=== PATIENT | female | born 1945 | race Caucasian/White ===

== ENCOUNTER 2022-10-11 05:13 | Inpatient (IN) | payer OTHER ==
[~2022-10-11] VITALS: Ht 175.3 cm; Wt 102.0 kg
[2022-10-11 06:19] LABS: Basophils # (auto) 0 10 ^3/uL (0-0.2); Basophils % (auto) 0.2 % (0.0-2.0); Eosinophils # (auto) 0 10 ^3/uL (0-0.8); Eosinophils % (auto) 0.5 % (0.0-7.0); Hematocrit 37.5 % (36.0-46.0); Hemoglobin 12.1 g/dL (12.2-16.2); Lymphocytes # (auto) 1.2 10 ^3/uL (0.4-5.4); Lymphocytes % (auto) 14.1 % (10.0-50.0); Mean Corpuscular Hgb Conc. 32.4 g/dL (32.0-36.0); Mean Corpuscular Volume 89.6 fL (80.0-100.0); Monocytes # (auto) 0.8 10 ^3/uL (0-1.3); Monocytes % (auto) 8.8 % (0.0-12.0); Neutrophils # (auto) 6.7 10 ^3/uL (1.6-8.6); Neutrophils % (auto) 76.4 % (37.0-80.0); Nucleated Red Blood Cells % 0.1 %; Red Blood Cells 4.18 10^6/uL (4.0-5.20); Red Cell Distribution Width 13.7 % (11.8-14.3); White Blood Cell 8.7 10^3/uL (4.4-10.8)
[2022-10-11 07:08] LABS: Albumin 3.3 g/dL (3.4-5.0); Calcium 9.1 mg/dL (8.5-10.1); Potassium 3.9 mmol/L (3.5-5.1)
[2022-10-11 07:13] LABS: BUN/Creatinine Ratio 17.6 (10.0-20.0); Bilirubin, Total 0.4 mg/dL (0.2-1.0); Total Protein 6.2 g/dL (6.4-8.2)
[2022-10-11] MEDS ORDERED: InsuLIN REG 1unit/0.01ml Soln (100units/ml) IV ONE (07:30)
[2022-10-11] MEDS ORDERED: SODIUM CHLORIDE 0.9% 1,000 ML IV ONE (07:30)
[2022-10-11] MEDS ORDERED: ONDANSETRON HCL 4 MG/2 ML VIAL IV PRN (10:00)
[2022-10-11] MEDS ORDERED: MORPHINE SULFATE INJ 2 MG/ml SYRG IV PRN (10:00)
[2022-10-11] MEDS ORDERED: DOCUSATE SOD 100 MG CAP PO PRN (10:00)
[2022-10-11] MEDS ORDERED: DEXTROSE (50%) 50ML SYRG IV PRN (10:15)
[2022-10-11] MEDS: ENOXAPARIN SOD 40 MG/0.4 ML SYRINGE SC SCH (10:28)
[2022-10-11] MEDS: SODIUM CHLORIDE 0.9% 1,000 ML IV SCH (10:28)
[2022-10-11] MEDS: InsuLIN REG 1unit/0.01ml Soln (100units/ml) SC SCH ×3 (11:49→22:35)
[2022-10-11] MEDS: ACCU-CHEK COMFORT CURVE STRIP VI SCH ×3 (11:50→22:29)
[2022-10-11 12:52] LABS: Creatinine, Urine 41 mg/dL (30.0-125.0); Sodium Urine 72 mmol/L (40-220)
[2022-10-11] MEDS ORDERED: ATOR20TA50 PO (13:33)
[2022-10-11] MEDS ORDERED: ALLO100T PO (13:33)
[2022-10-11] MEDS ORDERED: FURO80TA3 PO (13:33)
[2022-10-11] MEDS ORDERED: FERR325T20 PO (13:33)
[2022-10-11] MEDS ORDERED: LEVO50TA7 PO (13:33)
[2022-10-11] MEDS ORDERED: VENL-222 PO (13:33)
[2022-10-11] MEDS ORDERED: METO5TAB5 PO (13:33)
[2022-10-11] MEDS ORDERED: GABA300C10 PO (13:33)
[2022-10-11] MEDS ORDERED: HYDR50TA15 PO (13:33)
[2022-10-11] MEDS ORDERED: PRAM1.5T4 PO (13:33)
[2022-10-11] MEDS ORDERED: BUSP10TA90 PO (13:33)
[2022-10-11] MEDS ORDERED: ERGO1CAP12 PO (13:33)
[2022-10-11] MEDS ORDERED: GLIP2.5T28 PO (13:33)
[2022-10-11] MEDS: hydrALAZINE HCL 25 MG TAB PO SCH ×2 (14:04→22:36)
[2022-10-11] MEDS ORDERED: ACETAMINOPHEN 325 MG TAB PO PRN (20:30)
[2022-10-11] MEDS: hydrALAZINE HCL 20 MG/ML VL IV PRN (20:42)
[2022-10-12] MEDS: SODIUM CHLORIDE 0.9% 1,000 ML IV SCH (00:37)
[2022-10-12 05:03] LABS: Basophils # (auto) 0 10 ^3/uL (0-0.2); Basophils % (auto) 0.3 % (0.0-2.0); Eosinophils # (auto) 0.1 10 ^3/uL (0-0.8); Eosinophils % (auto) 1.7 % (0.0-7.0); Hematocrit 35.5 % (36.0-46.0); Hemoglobin 11.6 g/dL (12.2-16.2); Lymphocytes # (auto) 1.8 10 ^3/uL (0.4-5.4); Lymphocytes % (auto) 23.1 % (10.0-50.0); Mean Corpuscular Hemoglobin 28.8 pg (28.0-32.0); Mean Corpuscular Hgb Conc. 32.7 g/dL (32.0-36.0); Mean Corpuscular Volume 88.1 fL (80.0-100.0); Monocytes # (auto) 0.8 10 ^3/uL (0-1.3); Monocytes % (auto) 9.5 % (0.0-12.0); Neutrophils # (auto) 5.2 10 ^3/uL (1.6-8.6); Neutrophils % (auto) 65.4 % (37.0-80.0); Nucleated Red Blood Cells % 0.2 %; Red Blood Cells 4.03 10^6/uL (4.0-5.20); Red Cell Distribution Width 13.8 % (11.8-14.3); White Blood Cell 7.9 10^3/uL (4.4-10.8)
[2022-10-12 05:17] LABS: Calcium 9.4 mg/dL (8.5-10.1); Potassium 3.8 mmol/L (3.5-5.1)
[2022-10-12 05:21] LABS: Albumin 2.5 g/dL (3.4-5.0); BUN/Creatinine Ratio 20.2 (10.0-20.0)
[2022-10-12 05:23] LABS: Bilirubin, Total 0.3 mg/dL (0.2-1.0); Total Protein 6.2 g/dL (6.4-8.2)
[2022-10-12] MEDS: ACCU-CHEK COMFORT CURVE STRIP VI SCH ×4 (06:30→21:38)
[2022-10-12] MEDS: hydrALAZINE HCL 25 MG TAB PO SCH ×3 (06:37→21:37)
[2022-10-12] MEDS: InsuLIN REG 1unit/0.01ml Soln (100units/ml) SC SCH ×4 (06:39→21:49)
[2022-10-12] MEDS: ENOXAPARIN SOD 40 MG/0.4 ML SYRINGE SC SCH (09:30)
[2022-10-12] MEDS: hydrALAZINE HCL 20 MG/ML VL IV PRN ×2 (12:06→20:31)
[2022-10-12] MEDS ORDERED: METOPROLOL SUCCINATE XL 50 MG TAB PO ONE (13:45)
[2022-10-12] MEDS ORDERED: levoFLOXacin 500MG 100 ML IV ONE (14:00)
[2022-10-12] MEDS ORDERED: FUROSEMIDE 20 MG TAB PO ONE (14:00)
[2022-10-12] MEDS: GABAPENTIN 300 MG CAP PO SCH (21:36)
[2022-10-12] MEDS: ATORVASTATIN 20 MG TAB PO SCH (21:36)
[2022-10-12] MEDS: FERROUS SULFATE 325mg EC TAB PO SCH (21:36)
[2022-10-12] MEDS: PRAMIPEXOLE DIHYDROCHLORIDE PO SCH (21:37)
[2022-10-12] MEDS: busPIRone HCL 10 MG TAB PO SCH (21:37)
[2022-10-12 22:00] VITALS: BP 127/49
[2022-10-13] VITALS (7 sets, daily range): BP systolic 135–162; BP diastolic 48–61
[2022-10-13] MEDS: GLIPIZIDE 2.5 MG PO SCH (06:09)
[2022-10-13] MEDS: hydrALAZINE HCL 25 MG TAB PO SCH ×3 (06:09→22:00)
[2022-10-13] MEDS: LEVOTHYROXINE SODIUM 50 MCG TAB PO SCH (06:09)
[2022-10-13] MEDS: ACCU-CHEK COMFORT CURVE STRIP VI SCH ×4 (06:09→22:15)
[2022-10-13] MEDS: InsuLIN REG 1unit/0.01ml Soln (100units/ml) SC SCH ×4 (06:18→22:16)
[2022-10-13 06:37] LABS: Basophils # (auto) 0 10 ^3/uL (0-0.2); Basophils % (auto) 0.3 % (0.0-2.0); Eosinophils # (auto) 0.1 10 ^3/uL (0-0.8); Eosinophils % (auto) 1.7 % (0.0-7.0); Hematocrit 34.8 % (36.0-46.0); Hemoglobin 11.5 g/dL (12.2-16.2); Lymphocytes # (auto) 2.1 10 ^3/uL (0.4-5.4); Mean Corpuscular Hemoglobin 28.9 pg (28.0-32.0); Mean Corpuscular Hgb Conc. 33.1 g/dL (32.0-36.0); Mean Corpuscular Volume 87.3 fL (80.0-100.0); Monocytes # (auto) 0.8 10 ^3/uL (0-1.3); Monocytes % (auto) 10.4 % (0.0-12.0); Neutrophils # (auto) 4.4 10 ^3/uL (1.6-8.6); Neutrophils % (auto) 59.6 % (37.0-80.0); Nucleated Red Blood Cells % 0.1 %; Red Blood Cells 3.99 10^6/uL (4.0-5.20); Red Cell Distribution Width 13.7 % (11.8-14.3); White Blood Cell 7.4 10^3/uL (4.4-10.8)
[2022-10-13 06:56] LABS: Potassium 4.3 mmol/L (3.5-5.1)
[2022-10-13 07:00] LABS: BUN/Creatinine Ratio 20.9 (10.0-20.0)
[2022-10-13] MEDS: levoFLOXacin 250MG 50 ML IV SCH (10:53)
[2022-10-13] MEDS: METOPROLOL SUCCINATE XL 50 MG TAB PO SCH (10:55)
[2022-10-13] MEDS: busPIRone HCL 10 MG TAB PO SCH ×2 (10:55→22:18)
[2022-10-13] MEDS: FUROSEMIDE 40 MG TAB PO SCH (10:56)
[2022-10-13] MEDS: ALLOPURINOL 100 MG TAB PO SCH (10:56)
[2022-10-13] MEDS: FERROUS SULFATE 325mg EC TAB PO SCH ×2 (10:56→22:17)
[2022-10-13] MEDS: ENOXAPARIN SOD 40 MG/0.4 ML SYRINGE SC SCH (10:57)
[2022-10-13 13:24] LABS: Protein, Urine 33.6 mg/dL (0.0-11.9)
[2022-10-13 14:28] LABS: Urine Bacteria FEW /hpf (None Seen); Urine Blood Negative /uL (Negative); Urine Specific Gravity 1.021 (1.001-1.035); Urine WBC 11 /hpf (0 - 5)
[2022-10-13] MEDS: PRAMIPEXOLE DIHYDROCHLORIDE PO SCH (22:00)
[2022-10-13] MEDS: GABAPENTIN 300 MG CAP PO SCH (22:17)
[2022-10-13] MEDS: ATORVASTATIN 20 MG TAB PO SCH (22:17)
[2022-10-14 05:00] VITALS: BP 136/47
[2022-10-14] MEDS: hydrALAZINE HCL 25 MG TAB PO SCH (06:00)
[2022-10-14] MEDS: GLIPIZIDE 2.5 MG PO SCH (07:00)
[2022-10-14] MEDS: ACCU-CHEK COMFORT CURVE STRIP VI SCH (07:07)
[2022-10-14] MEDS: InsuLIN REG 1unit/0.01ml Soln (100units/ml) SC SCH (07:08)
[2022-10-14] MEDS: LEVOTHYROXINE SODIUM 50 MCG TAB PO SCH (07:10)
[2022-10-14 08:00] VITALS: BP 141/71
[2022-10-14] MEDS: levoFLOXacin 250MG 50 ML IV SCH (10:24)
[2022-10-14] MEDS: ENOXAPARIN SOD 40 MG/0.4 ML SYRINGE SC SCH (10:24)
[2022-10-14] MEDS: FUROSEMIDE 40 MG TAB PO SCH (10:25)
[2022-10-14] MEDS: FERROUS SULFATE 325mg EC TAB PO SCH (10:25)
[2022-10-14] MEDS: busPIRone HCL 10 MG TAB PO SCH (10:25)
[2022-10-14] MEDS: ALLOPURINOL 100 MG TAB PO SCH (10:26)
[2022-10-14] MEDS: METOPROLOL SUCCINATE XL 50 MG TAB PO SCH (10:27)
[2022-10-14 12:00] VITALS: BP 152/69
[2022-10-14 12:49] VITALS: BP 141/71
[2022-10-15] MEDS ORDERED: LEVO250T69 PO (11:57)
== END 2022-10-14 16:05 | disposition home health service (06) | DRG 637 ==
LOC: EDBD 05:13 → ER 05:13 → EDUNIT# 05:13 → EDSEX 05:13 → TELE 10:03 → TELE-EAST 10-12 20:51
PROVIDERS: ADMIT Nurse Practitioner Family; ATTEND Internal Medicine Geriatric Medicine
DX: E11.65 Type 2 diabetes mellitus with hyperglycemia (principal); N17.0 Acute kidney failure with tubular necrosis; L03.115 Cellulitis of right lower limb; I13.0 Hypertensive heart and chronic kidney disease with heart failure and stage 1 through stage 4 chronic kidney disease, or unspecified chronic kidney disease; E87.1 Hypo-osmolality and hyponatremia; E44.0 Moderate protein-calorie malnutrition; N18.32 Chronic kidney disease, stage 3b; I16.0 Hypertensive urgency; I50.9 Heart failure, unspecified; E66.9 Obesity, unspecified; D63.1 Anemia in chronic kidney disease; E03.9 Hypothyroidism, unspecified; E78.5 Hyperlipidemia, unspecified; J45.909 Unspecified asthma, uncomplicated; Z88.0 Allergy status to penicillin; Z90.710 Acquired absence of both cervix and uterus; Z85.05 Personal history of malignant neoplasm of liver; E11.22 Type 2 diabetes mellitus with diabetic chronic kidney disease; F32.A Depression, unspecified; Z88.2 Allergy status to sulfonamides; Z88.8 Allergy status to other drugs, medicaments and biological substances
CPT/HCPCS: 36415; 70450; 71250; 72125; 73020; 74176; 76775; 80048; 80053; 81001; 82010; 82140; 82306; 82550; 82570; 82962; 83735; 83880; 83970; 84100; 84156; 84300; 84484; 85025; 93005; 96361; 96372; 96374; 97110; 97116; 97163; 97530; G0378; J1815; J1956